=== PATIENT | female | born 1970 | race Caucasian/White ===

== ENCOUNTER 2016-12-03 14:44 | Emergency (ER) | payer BC, OTHER ==
[~2016-12-03] VITALS: Ht 162.6 cm; Wt 90.0 kg
[2016-12-03 14:52] VITALS: BP 134/77; PULSE 104; RESP 18; TEMP 97.7; O2SAT 98
[2016-12-03] MEDS ORDERED: LEVO25TA4 PO (16:22)
[2016-12-03] MEDS ORDERED: SODIUM CHLOR 0.9% 1000 ML INJ 1,000 ML IV SCH (16:25)
--- NOTE | 2016-12-03 16:25 | PD ---
HPI Chief Complaint: Abdominal Pain Time Seen by Provider: 16:25 Travel History International Travel<30 days: No Contact w/Intl Traveler<30days: No Traveled to known affect area: No History of Present Illness HPI 46-year-old female visiting from [facility], presents to the emergency department with sudden onset left lower abdominal pain similar to previous to diverticulitis attacks. Patient states she was fine yesterday, but today at approximately 11:00 this morning she developed sudden onset left lower abdominal discomfort and pain. Patient has had nausea, chills, but no vomiting. She denies diarrhea. Patient states this is the third time she feels she has had diverticulitis since July 2016. Patient recently was treated with antibiotics orally for 2 weeks ending on November 15. Patient was told the last time she was treated that she may need abdominal surgery if she has recurrent symptoms. Patient denies urinary symptoms at this time. Patient denies . Patient has no known drug allergies. PFSH Past Medical History Diverticulitis: Yes Thyroid Disease: Yes Tetanus Vaccination: < 5 Years ?: Unknown LMP: 11/22/16 Past Surgical History Other Surgery: Yes () Social History Alcohol Use: No Tobacco Use: No Substance Use: No Allergies-Medications (Allergen,Severity, Reaction): Coded Allergies: No Known Allergies (Unverified , 12/03/16) Reported Meds & Prescriptions Reported Meds & Active Scripts Active Zofran Odt (Ondansetron Odt) 4 Mg Tab 4 Mg SL Q6HR PRN Flagyl (Metronidazole) 500 Mg Tab 500 Mg PO TID 14 Days Cipro (Ciprofloxacin HCl) 500 Mg Tab 500 Mg PO BID 14 Days Percocet (Oxycodone-Acetaminophen) 5-325 mg Tab 1-2 Tab PO Q6H PRN Reported Levothyroxine (Levothyroxine Sodium) 25 Mcg Tab 25 Mcg PO DAILY Review of Systems Except as stated in HPI: all other systems reviewed are Neg General / Constitutional: Positive: Chills, No: Fever Eyes: No: Visual changes HENT: No: Headaches Cardiovascular: No: Chest Pain or Discomfort Respiratory: No: Shortness of Breath Gastrointestinal: Positive: Nausea, Abdominal Pain (see history of present illness.), Loss of Appetite, No: Vomiting, Diarrhea Genitourinary: No: Dysuria Musculoskeletal: No: Pain Skin: No Rash Neurologic: No: Weakness Psychiatric: No: Depression Endocrine: No: Polydipsia Hematologic/Lymphatic: No: Easy Bruising Physical Exam Narrative GENERAL: Patient appears in moderate distress. SKIN: Warm and dry. Mild pallor. Normal turgor. Mild diaphoresis. HEAD: Atraumatic. Normocephalic. EYES: Pupils equal and round. No scleral icterus. No injection or drainage. ENT: No nasal bleeding or discharge. Mucous membranes pink and moist. Pharynx is normal. NECK: Trachea midline. No JVD. Supple and nontender. CARDIOVASCULAR: Tachycardic rate and normal rhythm. RESPIRATORY: No accessory muscle use. Clear to auscultation. Breath sounds equal bilaterally. GASTROINTESTINAL: Abdomen soft, mild left sided guarding, moderate point tenderness in the left mid abdominal region, nondistended. Moderate rebound tenderness. Hepatic and splenic margins not palpable. MUSCULOSKELETAL: Extremities without clubbing, cyanosis, or edema. No obvious deformities. NEUROLOGICAL: Awake and alert. No obvious cranial nerve deficits. Motor grossly within normal limits. Five out of 5 muscle strength in the arms and legs. Normal speech. PSYCHIATRIC: Appropriate mood and affect; insight and judgment normal. Data Data Last Documented VS Vital Signs Date Time Temp Pulse Resp B/P Pulse Ox O2 Delivery O2 Flow Rate FiO2 12/03/16 21:34 99.1 12/03/16 20:03 18 12/03/16 19:20 106 129/70 98 Room Air Orders Complete Blood Count With Diff (12/03/16 16:25) Comprehensive Metabolic Panel (12/03/16 16:25) Lipase (12/03/16 16:25) Lactic Acid (12/03/16 16:25) Prothrombin Time / Inr (Pt) (12/03/16 16:25) Act Partial Throm Time (Ptt) (12/03/16 16:25) Urinalysis - C+S If Indicated (12/03/16 16:25) Ct Abd/Pel W Iv Contrast(Rout) (12/03/16 16:25) Iv Access Insert/Monitor (12/03/16 16:25) Ecg Monitoring (12/03/16 16:25) Oximetry (12/03/16 16:25) NPO (12/03/16 16:25) Morphine Inj (Morphine Inj) (12/03/16 16:30) Ondansetron Inj (Zofran Inj) (12/03/16 16:30) Ampicillin-Sulbactam Inj (Unasyn Inj) (12/03/16 16:30) Sodium Chlor 0.9% 1000 Ml Inj (Ns 1000 M (12/03/16 16:25) Sodium Chloride 0.9% Flush (Ns Flush) (12/03/16 16:30) Ed Urine Pregnancytest Poc (12/03/16 16:25) Oral Contrast - Adult (12/03/16 16:43) Diatrizoate Liq ( Gastroview Liq) (12/03/16 16:55) Morphine Inj (Morphine Inj) (12/03/16 18:15) Iohexol 350 Inj (Omnipaque 350 Inj) (12/03/16 18:33) Sodium Chlor 0.9% 1000 Ml Inj (Ns 1000 M (12/03/16 20:00) Ciprofloxacin (Cipro) (12/03/16 20:15) Metronidazole (Flagyl) (12/03/16 20:15) Ketorolac Inj (Toradol Inj) (12/03/16 20:30) Lactic Acid (12/03/16 20:30) Oxycodone-Acetamin 5-325 Mg (Percocet (12/03/16 21:45) Acetaminophen (Tylenol) (12/03/16 21:45) Labs Laboratory Tests Test 12/03/16 12/03/16 12/03/16 16:45 18:00 22:15 White Blood Count 10.0 TH/MM3 Red Blood Count 4.52 MIL/MM3 Hemoglobin 13.6 GM/DL Hematocrit 40.8 % Mean Corpuscular Volume 90.3 FL Mean Corpuscular Hemoglobin 30.2 PG Mean Corpuscular Hemoglobin 33.4 % Concent Red Cell Distribution Width 14.6 % Platelet Count 216 TH/MM3 Mean Platelet Volume 8.8 FL Neutrophils (%) (Auto) 89.3 % Lymphocytes (%) (Auto) 6.8 % Monocytes (%) (Auto) 3.7 % Eosinophils (%) (Auto) 0.1 % Basophils (%) (Auto) 0.1 % Neutrophils # (Auto) 8.9 TH/MM3 Lymphocytes # (Auto) 0.7 TH/MM3 Monocytes # (Auto) 0.4 TH/MM3 Eosinophils # (Auto) 0.0 TH/MM3 Basophils # (Auto) 0.0 TH/MM3 CBC Comment DIFF FINAL Differential Comment Prothrombin Time 10.3 SEC Prothromb Time International 0.9 RATIO Ratio Activated Partial 27.4 SEC Thromboplast Time Sodium Level 136 MEQ/L Potassium Level 4.9 MEQ/L Chloride Level 103 MEQ/L Carbon Dioxide Level 25.6 MEQ/L Anion Gap 7 MEQ/L Blood Urea Nitrogen 11 MG/DL Creatinine 0.92 MG/DL Estimat Glomerular Filtration 65 ML/MIN Rate Random Glucose 77 MG/DL Lactic Acid Level 3.2 mmol/L 1.8 mmol/L Calcium Level 8.8 MG/DL Total Bilirubin 0.4 MG/DL Aspartate Amino Transf 49 U/L (AST/SGOT) Alanine Aminotransferase 28 U/L (ALT/SGPT) Alkaline Phosphatase 51 U/L Total Protein 8.2 GM/DL Albumin 4.3 GM/DL Lipase 123 U/L Urine Color LIGHT-YELLOW Urine Turbidity CLEAR Urine pH 5.0 Urine Specific [place] 1.011 Urine Protein NEG mg/dL Urine Glucose (UA) NEG mg/dL Urine Ketones NEG mg/dL Urine Occult Blood SMALL Urine Nitrite NEG Urine Bilirubin NEG Urine Urobilinogen LESS THAN 2.0 MG/DL Urine Leukocyte Esterase NEG Urine RBC 3 /hpf Urine WBC LESS THAN 1 /hpf Urine Squamous Epithelial 1 /hpf Cells Urine Mucus FEW /lpf Microscopic Urinalysis Comment CULT NOT INDICATED MDM Medical Decision Making Medical Screen Exam Complete: Yes Emergency Medical Condition: Yes Differential Diagnosis Abdominal pain. Obstruction. Recurrent diverticulitis. Possible perforation. Narrative Course Patient is medically stable at time of exam. Labs ordered including CBC, CMP, lactic acid, lipase, urinalysis, and urine . IV access is obtained patient is given 4 mg morphine, 4 mg Zofran IV, and 1000 mL normal saline bolus. CT of the abdomen is ordered with oral contrast. CBC is fairly unremarkable except an increase in neutrophils 89.3%. Chemistry is unremarkable except for lactic acid of 3.2. Urine is unremarkable. CT scan shows diverticulitis involving the proximal sigmoid colon. No drainable fluid collections about the avulsed segment. There is prominent amount of free fluid in the dependent pelvis. Per radiologist. These findings were discussed with Dr. Crane, specifically the amount of free fluid, and he did not feel this was a collection of blood or pus. This was discussed with Dr. Ramirez. Patient was discussed and examined with Dr. Ramirez. Discussed keeping the patient versus discharging home on oral antibiotics and pain control. Patient is to have repeat lactic acid after total of 2 L of normal saline bolus. If lactic acid is improved, patient can be discharged home. Lactic acid is much improved at 1.8 on recheck. Patient is discharged home with Cipro 500 mg twice a day 14 days. Patient also given Flagyl 500 mg 3 times a day 14 days. Patient is given a prescription for Percocet 5/325 one to 2 tabs every 6 hours when necessary pain #20. Patient take ibuprofen as well as needed. Patient should follow a fluid diet as discussed, and follow up with her primary care physician/GI specialist upon returning home to [place]. Diagnosis Primary Impression: Diverticulitis large intestine w/o perforation or abscess w/o bleeding Patient Instructions: Diverticulitis (ED), General Instructions Additional Instructions: Lactic acid is much improved at 1.8 on recheck. Patient is discharged home with Cipro 500 mg twice a day 14 days. Patient also given Flagyl 500 mg 3 times a day 14 days. Patient is given a prescription for Percocet 5/325 one to 2 tabs every 6 hours when necessary pain #20. Patient take ibuprofen as well as needed. Patient should follow a fluid diet as discussed, and follow up with her primary care physician/GI specialist upon returning home to [place]. Med/Other Pt SpecificInfo: Prescription(s) given Scripts Ondansetron Odt (Zofran Odt)4 Mg Tab4 Mg SL Q6HR PRN (Nausea/Vomiting) #15 TAB Prov:Jfeerson Ramirez MD 12/03/16 Metronidazole (Flagyl)500 Mg [id number] Mg PO TID 14 Days Ref 0 Prov:Jeferson Ramirez MD 12/03/16 Ciprofloxacin (Cipro)500 Mg [id number] Mg PO BID 14 Days Ref 0 Prov:Jeferson Ramirez MD 12/03/16 Oxycodone-Acetaminophen (Percocet)5-325 mg Tab1-2 Tab PO Q6H PRN (PAIN) #15 TAB Ref 0 Prov:Jeferson Ramirez MD 12/03/16 Disposition: 01 DISCHARGE HOME Condition: Stable Hesham Almaguer Dec 03, 2016 16:25
[2016-12-03] MEDS ORDERED: AMPICILLIN-SULBACTAM INJ 3 GM in SODIUM CHLORIDE 0.9% INJ 100 ML IV ONE (16:30)
[2016-12-03] MEDS ORDERED: SODIUM CHLORIDE 0.9% FLUSH 10 ML FLUSH IV FLUSH PRN (16:30)
[2016-12-03] MEDS ORDERED: MORPHINE SULFATE 4 MG/ML INJ IV PUSH ONE ×2 (16:30→18:15)
[2016-12-03] MEDS ORDERED: ONDANSETRON HCL 4 MG/2 ML VIAL IVP ONE (16:30)
[2016-12-03] MEDS ORDERED: DIATRIZOATE MEGLUM/DIATRIZOATE SOD 9 ML CUP ONE (16:55)
[2016-12-03 16:57] VITALS: O2SAT 99
[2016-12-03 16:57] LABS: AUTOMATED NEUTROPHIL # 8.9 TH/MM3 (1.8-7.7); BASOPHIL % 0.1 % (0.0-2.0); EOSINOPHIL % 0.1 % (0.0-4.0); HEMATOCRIT 40.8 % (35.0-46.0); HEMO FLAGS DIFF FINAL; LYMPH % 6.8 % (9.0-44.0); LYMPHOCYTE # 0.7 TH/MM3 (1.0-4.8); MEAN CELL VOLUME 90.3 FL (80.0-100.0); MEAN CORPUSCULAR HEMOGLOBIN 30.2 PG (27.0-34.0); MEAN CORPUSCULAR HGB CONC 33.4 % (32.0-36.0); MONO % 3.7 % (0.0-8.0); NEUT % 89.3 % (16.0-70.0); PLATELET COUNT 216 TH/MM3 (150-450); RED BLOOD COUNT 4.52 MIL/MM3 (4.00-5.30); RED CELL DISTRIBUTION WIDTH 14.6 % (11.6-17.2)
[2016-12-03 17:05] LABS: APTT (PATIENT) 27.4 SEC (24.3-30.1); INTERNATIONAL NORMALIZED RATIO 0.9 RATIO; PROTHROMBIN TIME - PATIENT 10.3 SEC (9.8-11.6)
[2016-12-03 17:33] LABS: ALKALINE PHOSPHATASE 51 U/L (45-117); ALT (GPT) 28 U/L (10-53); ANION GAP 7 MEQ/L (5-15); AST (GOT) 49 U/L (15-37); BICARBONATE 25.6 MEQ/L (21.0-32.0); BLOOD UREA NITROGEN 11 MG/DL (7-18); CHLORIDE 103 MEQ/L (98-107); GLOMERULAR FILTRATION RATE 65 ML/MIN (>89); SODIUM (NA) 136 MEQ/L (136-145); TOTAL BILIRUBIN ADULT 0.4 MG/DL (0.2-1.0)
[2016-12-03 17:34] LABS: POTASSIUM 4.9 MEQ/L (3.5-5.1)
[2016-12-03 18:20] LABS: BLOOD, URINE SMALL (NEG); GLUCOSE,URINE NEG (NEG); KETONE, URINE NEG (NEG); MUCUS URINE FEW /lpf (OCC); NITRITE,URINE NEG (NEG); SQUAMOUS EPITHELIAL CELL URINE 1 /hpf (0-5); URINE COLOR LIGHT-YELLOW (YELLW/STRAW)
[2016-12-03 18:22] LABS: COMMENT (UR) CULT NOT INDICATED; CULTURE IF INDICATED CULT NOT INDICATED
[2016-12-03] MEDS ORDERED: IOHEXOL 350 MG/ML 10 ML VIAL (for RAD DIAG) IV ONE (18:33)
[2016-12-03 19:20] VITALS: BP 129/70; PULSE 106; RESP 18; O2SAT 98
--- NOTE | 2016-12-03 19:54 | RADRPT ---
EXAM DATE/TIME: 12/03/2016 18:33 [facility] COMPARISON: No previous studies available for comparison. INDICATIONS : Abdomen pain. IV CONTRAST: 85 cc Omnipaque 350 (iohexol) IV ORAL CONTRAST: Prescribed oral contrast ingested. RADIATION DOSE: 12.42 CTDIvol (mGy) MEDICAL HISTORY : Diverticulitis. SURGICAL HISTORY : section. ENCOUNTER: Initial ACUITY: 1 day PAIN SCALE: 4/10 LOCATION: Left lower quadrant TECHNIQUE: Volumetric scanning of the abdomen and pelvis was performed. Using automated exposure control and ad justment of the mA and/or kV according to patient size, radiation dose was kept as low as reasonably achievable to obtain optimal diagnostic quality images. FINDINGS: LOWER LUNGS: The visualized lower lungs are clear. LIVER: Homogeneous density without lesion. There is no dilation of the biliary tree. No calcified gallston es. SPLEEN: Normal size without lesion. PANCREAS: Within normal limits. KIDNEYS: Normal in size and shape. There is no mass, stone or hydronephrosis. ADRENAL GLANDS: Within normal limits. VASCULAR: There is no aortic aneurysm. BOWEL/MESENTERY: No dilated loops of small or large bowel. Oral contrast passes through to the splenic flexure. The appendix is identified in the right lower quadrant and has a normal dimension and the lumen contains contrast. There are diverticula scattered throughout the entire colon. There is an abnormal appeara nce to the junction of the descending colon and proximal sigmoid colon with induration about a segmen t which measures 5 cm in length. There is also a significant amount of free fluid in the cul-de-sac measuring up to 3.4 cm in thickness. ABDOMINAL WALL: Within normal limits. RETROPERITONEUM: There is no lymphadenopathy. BLADDER: No wall thickening or mass. REPRODUCTIVE: Uterus and adnexal region is unremarkable. INGUINAL: Inguinal lymph nodes measure up to 1.3 cm and have normal morphology. MUSCULOSKELETAL: Within normal limits for patient age. CONCLUSION: Findings are characteristic of diverticulitis involving the proximal sigmoid colon. No drainable flu id collections about the involved segment. There is a prominent amount of free fluid in the dependen t pelvis. Angel Crane MD on December 03, 2016 at 19:49 Board Certified Radiologist. This report was verified electronically.
[2016-12-03] MEDS ORDERED: SODIUM CHLOR 0.9% 1000 ML INJ 1,000 ML IV ONE (20:00)
[2016-12-03] MEDS ORDERED: PERC5TAB12 PO (20:07)
[2016-12-03] MEDS ORDERED: CIPR-9 PO (20:07)
[2016-12-03] MEDS ORDERED: METR-1 PO (20:07)
[2016-12-03] MEDS ORDERED: CIPROFLOXACIN 500 MG TAB PO ONE (20:15)
[2016-12-03] MEDS ORDERED: metroNIDAZOLE 500 MG TAB PO ONE (20:15)
[2016-12-03] MEDS ORDERED: ZOFR4TAB3 SL ×2 (20:22→20:34)
[2016-12-03] MEDS ORDERED: KETOROLAC TROMETHAMINE 30 MG/ML (IVP) VIAL IV PUSH ONE (20:30)
[2016-12-03 21:34] VITALS: TEMP 99.1
[2016-12-03] MEDS ORDERED: oxyCODONE/ACETAMINOPHEN 5 MG/325 MG TAB PO ONE (21:45)
[2016-12-03] MEDS ORDERED: ACETAMINOPHEN 500 MG CPLT PO ONE (21:45)
[2016-12-03 23:30] VITALS: RESP 18
== END 2016-12-03 23:32 | disposition home or self-care (01) ==
LOC: NEPC 14:44
DX: K57.32 Diverticulitis of large intestine without perforation or abscess without bleeding (principal); R11.0 Nausea; E07.9 Disorder of thyroid, unspecified; Z87.19 Personal history of other diseases of the digestive system
CPT/HCPCS: 74177; 80053; 81001; 83605; 83690; 84703; 85025; 85610; 85730; 96361; 96374; 96375; 96376; 99284; J0295; J1885; J2270; J2405; J7030; Q9963; Q9967